=== PATIENT | female | born 1975 | race Caucasian/White ===

== ENCOUNTER 2016-06-27 13:00 | Emergency (ER) | payer MEDICAID ==
[2016-06-27 13:20] VITALS: BP 138/85
[2016-06-27] MEDS: TORADOL IM ONE (16:12)
--- NOTE | 2016-06-27 16:59 | Emergency Department Report ---
Entered by JOLEEN SILVESTRE, acting as scribe for BISHNU DOAN PA. ED Lower Extremity HPI - General Chief Complaint: Extremity Injury, Lower Stated Complaint: RT KNEE/RT LEG PAIN Time Seen by Provider: 06/27/16 15:15 Source: patient Mode of arrival: Ambulatory Limitations: No Limitations - History of Present Illness Initial Comments: 41 y/o female presents to ED c/o right knee pain secondary to recently starting to work out at home and exercise, since this week. She denies trauma to her knee , and advises she regularly administers Tramadol 50 mg at night, Tylenol, and Excedrin for chronic low back and knee pain. She states she normally stretches before exercise, with no relief. 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 MD Complaint: knee injury (pain after working out) Onset/Timin -: week(s) Injury: Knee: Right (atraumatic, pain after working out) Place: home Severity: moderate Improves With: nothing Worsens With: movement Context: other (working out, exercising) Associated Symptoms: ambulatory Treatments Prior to Arrival: other (Tramadol, 50 mg at night only, Tylenol, Excedrin) - Related Data Previous Rx's Medication Instructions Recorded Last Taken Type traMADol [Ultram 50 MG tab] 50 mg PO Q6HR PRN #20 tablet 06/27/16 Unknown Rx Allergies Allergy/AdvReac Type Severity Reaction Status Date / Time No Known Allergies Allergy Unverified 06/27/16 13:20 ED Review of Systems Comment: All other systems reviewed and negative Constitutional: denies: chills, fever Musculoskeletal: arthralgia (of right knee) ED Past Medical Hx - Past Medical History Hx Congestive Heart Failure: Yes Additional medical history: MVP,obesity,chronic back and knee pain - Surgical History Additional Surgical History: umbilical hernia,2 c-sections,hysterectomy,bladder tear with repair - Social History Smoking Status: Never Smoker Substance Use Type: None - Medications Home Medications: Home Medications Medication Instructions Recorded Confirmed Last Taken Type traMADol [Ultram 50 MG tab] 50 mg PO Q6HR PRN #20 tablet 06/27/16 Unknown Rx ED Physical Exam - General Limitations: No Limitations - Other Other exam information: GENERAL: Patient is alert and oriented x 3. No apparent distress, normal gait, atraumatic. HEAD: Head is normocephalic and atraumatic. EYES: Extraocular movements are intact. Pupils are equal, round, and reactive to light and accommodation. EARS: Symmetrical, atraumatic, non tender, ear canal clear with moderate cerumen , tympanic membrane non inflamed. Gross auditory nml bilaterally. NOSE: Nose symmetrical, nontender. Nares appeared normal. MOUTH:Mouth is well hydrated and without lesions. Mucous membranes are moist. Uvula midline. Tongue not elevated. Posterior pharynx clear, no exudate or lesions. Tonsils are not erythematous or swollen. Patent airway. NECK: Supple. Non edematous, no carotid bruits. No lymphadenopathy or thyromegaly. LUNGS: Symmetrical with respiration. No wheezing, rales or crackles, CTAB. HEART: Regular rate and rhythm with normal S1/S2 present. No murmurs, rubs, or gallops. EXTREMITIES/MUSCULOSKELETAL: No cyanosis, clubbing, rash, lesions or edema. Full ROM bilaterally. UE/LE Pulses 2+ bilaterally. Tenderness to anterior right knee with painful ROM with outward rotation SKIN: Warm and dry. No lesions, ulceration or induration present PSYCHIATRIC: Mood is congruent with affect. Denies suicidal or homicidal ideations. ED Course Vital Signs 06/27/16 13:14 Temperature 98.3 F Pulse Rate 88 Respiratory 18 Rate Blood Pressure 138/85 O2 Sat by Pulse 100 Oximetry - Reevaluation(s) Reevaluation #1: 06/27/16 16:39 Patient is moving around the room without any distress or or discomfort. She has normal gait. ED Lower Extremity MDM - Medical Decision Making 41 year old female patient presents today with atraumatic right knee pain secondary to increasing exercise and working out, since 1 week ago. Patient is administered IM Tramadol for pain relief in ED, with improvement. Patient is in no acute distress at this time. She will be discharged home and is advised to increase her currently prescribed Tramadol to two times per day, as well as apply ice and elevate her leg with plenty of rest. She is encouraged to follow up with her primary care provider. She is encouraged to return to the emergency room for any worsening symptoms. ED Disposition Clinical Impression: Patellofemoral arthralgia of right knee Disposition: DISCHARGED TO HOME OR SELFCARE Is pt being admited?: No Does the pt Need Aspirin: No Condition: Stable Additional Instructions: You may increase your Tramadol to two times per day for pain control. You may also elevate your knee and apply ice for relief. Rest your knee until pain improves before exercising again. Consider purchasing more supportive shoes as this will help alleviate pain in your knees. Follow up with primary care provider. Prescriptions: traMADol [Ultram 50 MG tab] 50 mg PO Q6HR PRN #20 tablet PRN Reason: Pain Referrals: PRIMARY CARE,MD [Primary Care Provider] - 3-5 Days Forms: Work/School Release Form(ED) This documentation as recorded by the KONRAD parkinson AHSAN,accurately reflects the service I personally performed and the decisions made by me,BISHNU DOAN PA.
== END 2016-06-27 16:48 | disposition home or self-care (01) ==
LOC: ED 13:00
DX: M25.561 Pain in right knee (principal); G89.29 Other chronic pain; Z90.710 Acquired absence of both cervix and uterus
CPT/HCPCS: 96372; 99282; J1885

== ENCOUNTER 2017-01-15 11:18 | Emergency (ER) | payer MEDICAID ==
[2017-01-15 13:01] LABS: Basophils % (Auto) 0.5 % (0.0-1.8); Eosinophils % (Auto) 0.3 % (0.0-4.3); Hematocrit 34.9 % (30.3-42.9); Hemoglobin 11.5 gm/dl (10.1-14.3); Mean Corpuscular HGB Conc 33 % (30-34); Mean Corpuscular Hemoglobin 28 pg (28-32); Mean Corpuscular Volume 87 fl (79-97); Platelet Count 189 K/mm3 (140-440); Red Blood Count 4.03 M/mm3 (3.65-5.03); Red Cell Distribution Width 14.4 % (13.2-15.2); White Blood Count 7.4 K/mm3 (4.5-11.0)
[2017-01-15 13:18] LABS: Anion Gap 15 mmol/L; BUN/Creatinine Ratio 15; Blood Urea Nitrogen 9 mg/dL (7-17); Calcium 8.6 mg/dL (8.4-10.2); Carbon Dioxide 29 mmol/L (22-30); Chloride 100.1 mmol/L (98-107); Glucose 86 mg/dL (65-100); Potassium 4.4 mmol/L (3.6-5.0); Sodium 140 mmol/L (137-145)
[2017-01-15] MEDS ORDERED: XOPENEX IH ONE ×2 (17:13→19:34)
[2017-01-15] MEDS ORDERED: ATROVENT IH ONE ×2 (17:13→19:34)
--- NOTE | 2017-01-15 17:17 | Emergency Department Report ---
ED Shortness of Breath HPI - General Chief Complaint: Chest Pain Stated Complaint: CHEST PAIN/POSS RESPIRATORY INFECTION Time Seen by Provider: 01/15/17 17:05 Source: patient Mode of arrival: Ambulatory Limitations: No Limitations - History of Present Illness Initial Comments: Patient is 41 years old female history of asthma, congestive heart failure she presented today with shortness of breath has been going on for 3 days. Stated that her symptoms started with a sinus infection for which she received amoxicillin by her primary care physician but her symptoms are not improving. Patient stated that she is having a sharp chest pain all over her chest when she takes a deep breath. Denied any fever, nausea, vomiting. MD Complaint: shortness of breath, cough, chest pain Known History Of: asthma, congestive heart failure Associated Symptoms: chest pain, cough - Related Data Previous Rx's Medication Instructions Recorded Last Taken Type traMADol [Ultram 50 MG tab] 50 mg PO Q6HR PRN #20 tablet 06/27/16 Unknown Rx ALBUTEROL Inhaler [ProAir HFA 2 puff IH QID PRN #1 inhalation 01/15/17 Unknown Rx Inhaler] ALBUTEROL NEB's [Proventil 0.083% 2.5 mg IH TID PRN #30 nebu 01/15/17 Unknown Rx NEBS] Prednisone [predniSONE 10 mg 10 mg PO .TAPER #1 tab.ds.pk 01/15/17 Unknown Rx (6-Day Pack, 21 Tabs)] Allergies Allergy/AdvReac Type Severity Reaction Status Date / Time No Known Allergies Allergy Verified 01/15/17 11:25 ED Review of Systems ROS: Stated complaint: CHEST PAIN/POSS RESPIRATORY INFECTION Other details as noted in HPI Comment: All other systems reviewed and negative Constitutional: denies: chills, fever Respiratory: cough, shortness of breath, SOB with exertion, SOB at rest, wheezing Cardiovascular: chest pain Gastrointestinal: denies: abdominal pain, nausea, vomiting, diarrhea, constipation, hematemesis, melena, hematochezia Neurological: denies: headache, weakness, numbness, paresthesias ED Past Medical Hx - Past Medical History Hx Congestive Heart Failure: Yes Additional medical history: MVP,obesity,chronic back and knee pain - Surgical History Additional Surgical History: umbilical hernia,2 c-sections,hysterectomy,bladder tear with repair - Social History Smoking Status: Current Some Day Smoker Substance Use Type: Alcohol - Medications Home Medications: Home Medications Medication Instructions Recorded Confirmed Last Taken Type traMADol [Ultram 50 MG tab] 50 mg PO Q6HR PRN #20 tablet 06/27/16 Unknown Rx ALBUTEROL Inhaler [ProAir HFA 2 puff IH QID PRN #1 inhalation 01/15/17 Unknown Rx Inhaler] ALBUTEROL NEB's [Proventil 0.083% 2.5 mg IH TID PRN #30 nebu 01/15/17 Unknown Rx NEBS] Prednisone [predniSONE 10 mg 10 mg PO .TAPER #1 tab.ds.pk 01/15/17 Unknown Rx (6-Day Pack, 21 Tabs)] ED Physical Exam - General Limitations: No Limitations General appearance: alert, in no apparent distress - Head Head exam: Present: atraumatic, normocephalic - Eye Eye exam: Present: normal appearance - ENT ENT exam: Present: normal exam, normal orophraynx, mucous membranes moist - Respiratory Respiratory exam: Present: wheezes, rhonchi, decreased breath sounds, prolonged expiratory. Absent: respiratory distress, rales, stridor, chest wall tenderness , accessory muscle use - Cardiovascular Cardiovascular Exam: Present: regular rate, normal rhythm, normal heart sounds - GI/Abdominal GI/Abdominal exam: Present: soft, normal bowel sounds. Absent: tenderness, guarding, rebound, rigid, mass, bruit, pulsatile mass, hernia - Extremities Exam Extremities exam: Present: normal inspection, full ROM, normal capillary refill. Absent: tenderness - Neurological Exam Neurological exam: Present: alert, oriented X3, CN II-XII intact, normal gait, reflexes normal. Absent: abnormal gait, motor sensory deficit - Skin Skin exam: Present: warm, intact, normal color. Absent: cyanosis ED Course Vital Signs 01/15/17 01/15/17 01/15/17 11:25 16:09 16:15 Temperature 97.9 F Pulse Rate 80 Pulse Rate [ Anterior Bilateral Throughout] Respiratory 20 Rate Respiratory Rate [Anterior Bilateral Throughout] Blood Pressure 121/71 121/73 Blood Pressure [Left] O2 Sat by Pulse 97 98 96 Oximetry 01/15/17 01/15/17 01/15/17 16:20 16:31 16:45 Temperature 98.2 F Pulse Rate 65 68 68 Pulse Rate [ Anterior Bilateral Throughout] Respiratory 16 12 15 Rate Respiratory Rate [Anterior Bilateral Throughout] Blood Pressure 121/73 121/73 Blood Pressure 121/73 [Left] O2 Sat by Pulse 97 97 96 Oximetry 01/15/17 01/15/17 01/15/17 17:00 17:15 17:31 Temperature Pulse Rate 73 73 83 Pulse Rate [ Anterior Bilateral Throughout] Respiratory 17 14 17 Rate Respiratory Rate [Anterior Bilateral Throughout] Blood Pressure 106/64 121/73 121/73 Blood Pressure [Left] O2 Sat by Pulse 95 94 95 Oximetry 01/15/17 01/15/17 01/15/17 17:45 18:00 18:15 Temperature Pulse Rate 66 72 78 Pulse Rate [ Anterior Bilateral Throughout] Respiratory 21 19 10 L Rate Respiratory Rate [Anterior Bilateral Throughout] Blood Pressure 106/64 109/70 109/70 Blood Pressure [Left] O2 Sat by Pulse 96 98 96 Oximetry 01/15/17 01/15/17 01/15/17 18:31 18:45 19:00 Temperature Pulse Rate 69 72 74 Pulse Rate [ Anterior Bilateral Throughout] Respiratory 18 15 18 Rate Respiratory Rate [Anterior Bilateral Throughout] Blood Pressure 109/70 109/70 119/67 Blood Pressure [Left] O2 Sat by Pulse 95 99 93 Oximetry 01/15/17 01/15/17 01/15/17 19:15 19:31 19:39 Temperature Pulse Rate 75 72 Pulse Rate [ 79 Anterior Bilateral Throughout] Respiratory 18 19 Rate Respiratory 20 Rate [Anterior Bilateral Throughout] Blood Pressure 119/67 119/67 Blood Pressure [Left] O2 Sat by Pulse 92 92 Oximetry 01/15/17 01/15/17 01/15/17 19:45 19:46 20:00 Temperature Pulse Rate 100 H 97 H Pulse Rate [ 78 Anterior Bilateral Throughout] Respiratory 16 19 Rate Respiratory 18 Rate [Anterior Bilateral Throughout] Blood Pressure 119/67 120/73 Blood Pressure [Left] O2 Sat by Pulse 97 86 Oximetry 01/15/17 01/15/17 01/15/17 20:15 20:31 20:45 Temperature Pulse Rate 88 86 84 Pulse Rate [ Anterior Bilateral Throughout] Respiratory 21 22 20 Rate Respiratory Rate [Anterior Bilateral Throughout] Blood Pressure 120/73 120/73 120/73 Blood Pressure [Left] O2 Sat by Pulse 89 89 88 Oximetry 01/15/17 21:00 Temperature Pulse Rate 84 Pulse Rate [ Anterior Bilateral Throughout] Respiratory 20 Rate Respiratory Rate [Anterior Bilateral Throughout] Blood Pressure Blood Pressure 121/73 [Left] O2 Sat by Pulse 88 Oximetry ED Medical Decision Making - Lab Data Result diagrams: 01/15/17 12:38 01/15/17 12:38 - EKG Data -: EKG Interpreted by Me EKG shows normal: sinus rhythm Rate: normal - EKG Data Interpretation: no acute changes - Radiology Data Radiology results: report reviewed Chest x-ray with no acute finding. Critical care attestation.: If time is entered above; I have spent that time in minutes in the direct care of this critically ill patient, excluding procedure time. ED Disposition Clinical Impression: Asthmatic bronchitis, Shortness of breath Disposition: DC- TO HOME OR SELFCARE Is pt being admited?: No Condition: Stable Instructions: Chronic Bronchitis (ED) Prescriptions: ALBUTEROL Inhaler [ProAir HFA Inhaler] 2 puff IH QID PRN #1 inhalation PRN Reason: Shortness Of Breath ALBUTEROL NEB's [Proventil 0.083% NEBS] 2.5 mg IH TID PRN #30 nebu PRN Reason: Wheezing Prednisone [predniSONE 10 mg (6-Day Pack, 21 Tabs)] 10 mg PO .TAPER #1 tab.ds.pk Referrals: PRIMARY CARE, [Primary Care Provider] - 3-5 Days
--- NOTE | 2017-01-15 19:10 | XRay Report ---
FINAL REPORT PROCEDURE: Chest. TECHNIQUE: Portable AP view. HISTORY: Shortness of breath. COMPARISON: No prior studies are available for comparison. FINDINGS: The heart and mediastinum appear normal. The lungs are clear and well expanded. There are no pleural effusions. The soft tissues and regional skeleton are unremarkable. IMPRESSION: Negative portable chest.
[2017-01-15 21:01] VITALS: BP 121/73
== END 2017-01-15 21:01 | disposition home or self-care (01) ==
LOC: ED 11:18
DX: J45.909 Unspecified asthma, uncomplicated (principal); R06.02 Shortness of breath; G89.29 Other chronic pain; F17.200 Nicotine dependence, unspecified, uncomplicated; I50.9 Heart failure, unspecified
CPT/HCPCS: 36415; 71010; 80048; 83880; 84484; 85025; 85379; 93005; 93010; 94640; 96372; 99284; J2930